=== PATIENT | male | born 1975 | race Caucasian/White ===

== ENCOUNTER 2018-06-12 18:11 | Emergency (ER) | payer BC, SELFPAY ==
[2018-06-12] MEDS ORDERED: Cyclobenzaprine 10 MG TAB ONE (18:58)
[2018-06-12] MEDS ORDERED: Ketorolac Tromethamine 60 MG/2 ML VIAL ONE (18:58)
[2018-06-12] MEDS ORDERED: predniSONE 20 MG TAB ONE (18:58)
== END 2018-06-12 19:20 | disposition home or self-care (01) ==
LOC: BURERS 18:11
DX: M54.42 Lumbago with sciatica, left side (principal); E11.9 Type 2 diabetes mellitus without complications; I10 Essential (primary) hypertension; E66.9 Obesity, unspecified; Z79.899 Other long term (current) drug therapy; Z79.82 Long term (current) use of aspirin; Z79.84 Long term (current) use of oral hypoglycemic drugs
CPT/HCPCS: 96372; J1885; J7506

== ENCOUNTER 2025-07-16 21:08 | Emergency (ER) | payer OTHER, SELFPAY | END 2025-07-16 22:28 | disposition home or self-care (01) | LOC: BURERS 21:08 | DX: J40 Bronchitis, not specified as acute or chronic (principal); J32.9 Chronic sinusitis, unspecified | CPT/HCPCS: 71046; 87081; 87430 ==